=== PATIENT | male | born 1935 | race African-American/Black ===

== ENCOUNTER 2018-01-30 10:37 | Inpatient (IN) | payer OTHER ==
[~2018-01-30] VITALS: Ht 188 cm; Wt 143.3 kg
--- NOTE | 2018-01-30 11:07 | ED AMS/SEIZURE/WEAK/DIZZY ---
History of Present Illness General Chief Complaint: General Adult Stated Complaint: BIBA GEN WEAKNESS Source: patient Exam Limitations: no limitations Vital Signs & Intake/Output Vital Signs & Intake/Output Vital Signs Date Time Temp Pulse Resp B/P B/P Pulse O2 O2 Flow FiO2 Mean Ox Delivery Rate 01/30 1520 98.3 65 18 161/72 93 Room Air 01/30 1301 98.0 66 18 188/76 100 Nasal Cannula 01/30 1104 92 18 142/65 96 Room Air Room Air 01/30 1037 98.2 78 20 197/86 98 Room Air Allergies Coded Allergies: NO KNOWN ALLERGIES (06/08/11) Reconcile Medications Amlodipine/Valsartan/Hcthiazid (Exforge Hct 10-320-25 MG Tab) 10 MG-320 MG-25 MG TABLET 1 TAB PO DAILY BP (Reported) Aspirin (Ecotrin*) 81 MG TABLET.DR 1 TAB PO DAILY HEART/BLOOD (Reported) Beclomethasone Dipropionate (QVAR) 80 MCG AER.W.ADAP 2 PUF INH BID RESP. ( Reported) Gabapentin 400 MG CAPSULE 1 CAP PO BID SEIZURES/TREMORS (Reported) Multivit-Min/FA/Lycopen/Lutein (Centrum Silver Men Tablet) 300 MCG-600 MCG-300 MCG TABLET 1 TAB PO DAILY SUPPLEMENT (Reported) Nabumetone 750 MG TABLET 1 TAB PO BID PAIN/INFLAMMATION (Reported) Nebivolol HCl (Bystolic) 10 MG TABLET 1 TAB PO DAILY HEART/BP (Reported) Pioglitazone HCl/Metformin HCl (Actoplus Met XR 15-1,000 MG Tb) 15 MG-1,000 MG TBMP.24HR 1 TAB PO BID DM (Reported) Primidone 50 MG TABLET 2 TAB PO BID SEIZURES/TREMORS (Reported) Rosuvastatin Calcium (Crestor) 10 MG TABLET 1 TAB PO DAILY CHOLESTEROL ( Reported) Triage Note: PT BIBA STATING THAT HE COULD NOT GET OFF TOILET.. PT EVENTUALLY MADE IT BACK TO BED AND CALLED 911. C/O SHAKES AND WEEKNESS. PT STATES HE HAS HAD A HEADACHE SINCE YESTERDAY TO THE RIGHT SIDE OF HIS HEAD.. PT HAS RIGHT FACIAL DROOP, LEFT SIDE WEAK GRASP. DR GROSS AWARE Triage Nurses Notes Reviewed? yes HPI: Patient presents for evaluation of shaking "all over" that began yesterday. Today he felt too weak to use the toilet. He called for his who then called for an ambulance. Past History Travel History Traveled to [place] past 21 day No Medical History Any Pertinent Medical History? see below for history Pneumonia Vaccine: 11/19/09 Influenza Vaccine: 07/29/12 Surgical History Surgical History: non-contributory Psychosocial History Who do you live with Spouse Services at Home None What is your primary language Chilean Family History Hx Contributory? No Review of Systems Review of Systems Constitutional: Reports: see HPI. EENTM: Reports: no symptoms. Respiratory: Reports: no symptoms. Cardiovascular: Reports: no symptoms. GI: Reports: no symptoms. Genitourinary: Reports: no symptoms. Musculoskeletal: Reports: no symptoms. Skin: Reports: no symptoms. Neurological/Psychological: Reports: see HPI. Hematologic/Endocrine: Reports: no symptoms. Immunologic/Allergic: Reports: no symptoms. All Other Systems: Reviewed and Negative Physical Exam Physical Exam General Appearance: SEE BELOW Comments: Gen.: Well-nourished, well-developed, no acute respiratory distress. Head: Normocephalic, atraumatic. Eyes: Normal inspection bilaterally Ears: Normal inspection bilaterally Nose: Normal inspection Throat/mouth : Moist mucosa Neck: Supple, full range of motion, no goiter Heart: Regular rate and rhythm, no murmurs rubs or gallops Lungs: Clear to auscultation bilaterally with normal air entry Chest: Nontender Back: Normal range of motion Abdomen: Soft, nontender, nondistended, normal bowel sounds Extremities: Normal range of motion grossly, equal radial pulses, no cyanosis, diffuse tremors that increase with intention Neurologic: Cranial nerves grossly intact, speech is mildly dysarthric but appropriate Skin: warm and dry Psychiatric: Calm, cooperative, no apparent delusions or hallucinations Core Measures ACS in differential dx? No CVA/TIA Diagnosis No Sepsis Present: No Sepsis Focused Exam Completed? No Progress Differential Diagnosis: anemia, CVA/stroke, dehydration, electrolyte imbalance, hypoglycemia, hypoxia, intracranial Hem., intracranial mass/tumor, seizure disorder, PARKINSON DISEASE Plan of Care: Orders Procedure Date/time Status Saline Lock 01/30 1107 Active FingerStick- Glucose 01/30 1107 Active URINALYSIS 01/30 1107 Complete TSH REFLEX 01/30 1106 Complete PARTIAL THROMBOPLASTIN TIME 01/30 1047 Complete PROTHROMBIN TIME 01/30 1047 Complete COMPREHENSIVE METABOLIC PANEL 01/30 1047 Complete CBC WITHOUT DIFFERENTIAL 01/30 1047 Complete EKG 01/30 104 Active Laboratory Tests 01/30/18 1400: Urine Color YEL, Urine Clarity CLEAR, Urine pH 6.0, Ur Specific Dewey >= 1.030 , Urine Protein 30 H, Urine Ketones NEG, Urine Nitrite NEG, Urine Bilirubin NEG , Urine Urobilinogen 0.2, Ur Leukocyte Esterase NEG, Ur Microscopic SEDIMENT EXAMINED, Urine RBC 25-50 H, Urine WBC 1-3 H, Urine Mucus MOD H, Urine Hemoglobin MOD H, Urine Glucose NEG 01/30/18 1107: TSH &T3 &Free T4 Intrp Cancelled 01/30/18 1106: Anion Gap 13, Estimated GFR > 60, BUN/Creatinine Ratio 22.7, Glucose 105 H, Calcium 9.1, Total Bilirubin 0.4, AST 29, ALT 31, Alkaline Phosphatase 75, Total Protein 7.1, Albumin 3.8, Globulin 3.3, Albumin/Globulin Ratio 1.2, TSH &T3 & Free T4 Intrp 1.250, PT 12.1, INR 1.11, APTT 29, CBC w Diff NO MAN DIFF REQ, RBC 3.99 L, MCV 83.6, MCH 27.0, MCHC 32.3 L, RDW 16.2 H, MPV 10.6 H, Gran % 83.2 H, Lymphocytes % 9.9 L, Monocytes % 6.5, Eosinophils % 0.2, Basophils % 0.2, Absolute Granulocytes 10.7 H, Absolute Lymphocytes 1.3, Absolute Monocytes 0.8 H, Absolute Eosinophils 0, Absolute Basophils 0 Diagnostic Imaging: Discussed w/RAD: Radiology Read, CT Scan. Radiology Impression: PATIENT: LIO GAGE PRESENT AGE: 82 PATIENT ACCOUNT NO: [id number] : 37 LOCATION: [facility] ORDERING PHYSICIAN: Ralph Gross MD SERVICE DATE: 01/30/18 EXAM TYPE: RAD - XRY-PORTABLE CHEST XRAY EXAMINATION: XR PORTABLE CHEST CLINICAL INFORMATION: Shaking, weakness COMPARISON: Chest radiographs 12/28/2012, CT abdomen 2012. TECHNIQUE: Portable AP view of the chest is performed. FINDINGS: The lungs are clear. The vascularity is normal. There is no vascular congestion, visible airspace consolidation, or visible effusion. There is mild elevation left diaphragm. The cardiopericardial silhouette is stable. The hilar and mediastinal contours and bony structures are unremarkable. IMPRESSION: No acute intrathoracic disease. DICTATED BY: Abebe Butts MD DATE/TIME DICTATED:01/30 LEAD SYSTEMS ARCHITECT:ARIS DATE/TIME TRANSCRIBED:01/30/181133 CONFIDENTIAL, DO NOT COPY WITHOUT APPROPRIATE AUTHORIZATION. <Electronically signed in Other Vendor System> SIGNED BY: Abebe Butts MD 01/30/18 1141 , PATIENT: LIO GAGE PRESENT AGE: 82 PATIENT ACCOUNT NO: [id number] : 37 LOCATION: [facility] ORDERING PHYSICIAN: Ralph Gross MD SERVICE DATE: 01/30/18 EXAM TYPE: CAT - CT HEAD WO IV CONTRAST EXAMINATION: CT HEAD WITHOUT CONTRAST CLINICAL INFORMATION: Right facial droop. Left extremity weakness. COMPARISON: None TECHNIQUE: Contiguous axial imaging was performed from the skull base to vertex without intravenous administration of contrast. DLP: 610 mGy-cm FINDINGS: There is no intracranial hemorrhage, hematoma, or extra-axial fluid collection. The ventricles are normal in size. There is no hydrocephalus, edema, or mass effect. The muse-white matter differentiation appears symmetric. There is no visible acute territorial infarct or mass lesion. The calvarium appears intact. There is no pneumocephalus or orbital emphysema. The visualized sinuses and middle ears and mastoid air cells are clear. There is under pneumatization of the mastoids. IMPRESSION: No acute intracranial abnormality. DICTATED BY: Abebe Butts MD DATE/TIME DICTATED:01/30/181103 LE[employer] SYSTEMS ARCHITECT:ARIS DATE/TIME TRANSCRIBED:1103 CONFIDENTIAL, DO NOT COPY WITHOUT APPROPRIATE AUTHORIZATION. < Electronically signed in Other Vendor System> SIGNED BY: Abebe Butts MD 01/30/18 1114 Initial ED EKG: NSR, no ST T wave changes Prior EKG: unchanged Comments: Stroke alert called initially based on a history of a right facial droop that apparently began after the patient was picked up by EMS. Initially there seemed to be according to EMS no stroke symptoms. However during my examination of this patient there is likewise no apparent focal neurologic deficit. This impression was conveyed to the neurologist and the stroke alert canceled. 01/30/2018 3:00:27 PM I have updated Lio and his family on test results. They confirmed that his shaking that was of such concern today has been chronic and he takes gabapentin for this. They state that he has never seen a neurologist for the shaking having been cared for by his primary care physician only. His oxygen has been discontinued and I am serving for any hypoxia. Patient will be ambulated to assess for baseline functioning. Departure Departure Disposition: HOME OR SELF CARE Condition: Stable Clinical Impression Primary Impression: Tremors of nervous system Secondary Impressions: Anemia Qualifiers: Anemia type: unspecified type Qualified Code: D64.9 - Anemia, unspecified Hematuria, microscopic Leukocytosis Qualifiers: Leukocytosis type: unspecified Qualified Code: D72.829 - Elevated white blood cell count, unspecified Referrals: Tamera Sainz MD, I. (PCP/Family) Departure Forms: Customer Survey General Discharge Information Admission Note Spoke With: Chasity Newman MD Documentation of Exam: Documentation of any treatments & extenuating circumstances including Concerns Regarding Discharge (functional status, medication knowledge or non-compliance, living conditions, etc.) that warrant an admission rather than observation: Patient presents with worsening tremors overnight. He is also experiencing a generalized weakness that is severely compromised his ability to ambulate and he is well below baseline ambulatory and functional status. His evaluation reveals anemia, leukocytosis and hematuria. I feel this patient is a poor candidate for outpatient management as I feel he would be incapable of compliance given his weakness and diffuse tremors. I feel he is also at increased risk of falling with subsequent injury. I feel this patient now requires hospitalization for repeat CBCs and urinalysis. If patient's leukocytosis persists then causes of increased white blood cell count should be pursued such as inflammation infection or hematologic disease. If the patient's anemia persists then causes of his anemia should be investigated such as occult blood loss or iron deficiency. In addition patient's hematuria should be investigated if persistent and neurology consultation be considered. Finally patient's diffuse tremors should be investigated and neurology consultation considered for the possibility of Parkinson disease or other neuromuscular disorder. Given this patient's advanced age I feel he will require a multiple day hospitalization.
--- NOTE | 2018-01-30 11:14 | CT SCAN REPORT ---
EXAMINATION: CT HEAD WITHOUT CONTRAST CLINICAL INFORMATION: Right facial droop. Left extremity weakness. COMPARISON: None TECHNIQUE: Contiguous axial imaging was performed from the skull base to vertex without intravenous administration of contrast. DLP: 610 mGy-cm FINDINGS: There is no intracranial hemorrhage, hematoma, or extra-axial fluid collection. The ventricles are normal in size. There is no hydrocephalus, edema, or mass effect. The muse-white matter differentiation appears symmetric. There is no visible acute territorial infarct or mass lesion. The calvarium appears intact. There is no pneumocephalus or orbital emphysema. The visualized sinuses and middle ears and mastoid air cells are clear. There is under pneumatization of the mastoids. IMPRESSION: No acute intracranial abnormality.
[2018-01-30 11:37] LABS: PT 12.1 SEC (9.4-12.5); PTT 29 SEC (25-37)
--- NOTE | 2018-01-30 11:41 | RADIOLOGY REPORT ---
EXAMINATION: XR PORTABLE CHEST CLINICAL INFORMATION: Shaking, weakness COMPARISON: Chest radiographs 12/28/2012, CT abdomen 04/14/2013. TECHNIQUE: Portable AP view of the chest is performed. FINDINGS: The lungs are clear. The vascularity is normal. There is no vascular congestion, visible airspace consolidation, or visible effusion. There is mild elevation left diaphragm. The cardiopericardial silhouette is stable. The hilar and mediastinal contours and bony structures are unremarkable. IMPRESSION: No acute intrathoracic disease.
[2018-01-30] MEDS ORDERED: ASPIRIN EC81 M1 PO (11:59)
[2018-01-30] MEDS ORDERED: CENTRUM SILVER1 EAC4 PO (12:00)
[2018-01-30 12:17] LABS: ABSOLUTE BASOPHIL COUNT 0 /CUMM (0.0-0.2); ABSOLUTE EOSINOPHIL COUNT 0 /CUMM (0.0-0.7); ABSOLUTE GRANULOCYTE CT 10.7 /CUMM (1.4-6.5); ABSOLUTE LYMPH COUNT 1.3 /CUMM (1.2-3.4); ABSOLUTE MONOCYTE COUNT 0.8 /CUMM (0.10-0.60); BASOPHIL % 0.2 % (0.0-2.0); EOSINOPHIL % 0.2 % (0-5); HEMATOCRIT 33.4 % (42-52); MEAN CORPUSCULAR HGB CONC 32.3 G/DL (33.0-37.0); MEAN CORPUSCULAR VOLUME 83.6 FL (80.0-94.0); MEAN PLATELET VOLUME 10.6 FL (7.4-10.4); PLATELET COUNT 184 /CUMM (130-400); RBC DISTRIBUTION WIDTH 16.2 % (11.5-14.5); RED BLOOD CELL CT 3.99 /CUMM (4.70-6.10); WHITE BLOOD CELL COUNT 12.9 /CUMM (4.8-10.8)
[2018-01-30 12:28] LABS: GRANULOCYTE % 83.2 % (42.2-75.2)
[2018-01-30] MEDS ORDERED: EXFORGE HCT 101 EAC2 PO (13:12)
[2018-01-30] MEDS ORDERED: NABUMETONE750 M1 PO (13:12)
[2018-01-30] MEDS ORDERED: ACTOPLUS MET X1 EACH PO (13:13)
[2018-01-30] MEDS ORDERED: PRIMIDONE50 M1 PO (13:13)
[2018-01-30] MEDS ORDERED: QVAR8.7 G1 INH (13:13)
[2018-01-30] MEDS ORDERED: CRESTOR10 M1 PO (13:13)
[2018-01-30] MEDS ORDERED: BYSTOLIC10 M1 PO (13:13)
[2018-01-30] MEDS ORDERED: GABAPENTIN400 M2 PO (13:14)
--- NOTE | 2018-01-30 17:29 | History & Physical ---
Bear PORTILLO,[facility] 01/30/18 5698: General Information and HPI MD Statement: I have seen and personally examined GARY GAGE and documented this H&P. The patient is a 82 year old M who presented with a patient stated chief complaint of [weakness]. Source of Information: patient Exam Limitations: no limitations History of Present Illness: The patient is a 82-year-old gentleman with past medical history of hypertension , tremors, diabetes, hyperlipidemia and prostate cancer status post chemotherapy 10 years ago, with recent relapse along with spine metastasis for which patient is following up with his oncologist in [place] getting chemotherapy every 6 months?. The patient presented to [facility] on 01/30 with complain of generalized weakness. The patient was in usual state of health until this yesterday. The patient used bedside commode and felt so weak that he could not get up. The patient did not fall, lose consciousness, there was no prodromal dizziness chest pain, shortness of breath and palpitation. There was no seizure-like activity. Patient was experiencing extreme weakness. He called in his who called the ambulance. The patient is also complaining of increase in hand tremors. Patient has baseline tremors for which he takes primidone and Gabapentin. As per patient and his family his tremors have never been this bad. As per patient's the patient usually has tremors when he is trying to reach out for something. At present his tremor is worse on R side Review of systems patient reported feeling cold however denied any fevers. As per ED documentation Stroke alert was initially called because there was concern of right facial droop however on EMS examination, in ED physician examination there was no focal deficit. Hence the stroke alert was cancelled Patient passed bedside swallow evaluation. Allergies/Medications Allergies: Coded Allergies: NO KNOWN ALLERGIES (06/08/11) Home Med list Amlodipine/Valsartan/Hcthiazid (Exforge Hct 10-320-25 MG Tab) 10 MG-320 MG-25 MG TABLET 1 TAB PO DAILY BP (Reported) Amoxicillin/Clavulanate Potass (Amox-Clav 875-125 MG Tablet) 875 MG-125 MG TABLET 1 TAB PO Q12 INFECTION Aspirin (Ecotrin*) 81 MG TABLET.DR 1 TAB PO DAILY HEART/BLOOD (Reported) Beclomethasone Dipropionate (QVAR) 80 MCG AER.W.ADAP 2 PUF INH BID RESP. ( Reported) Gabapentin 400 MG CAPSULE 1 CAP PO BID SEIZURES/TREMORS (Reported) Multivit-Min/FA/Lycopen/Lutein (Centrum Silver Men Tablet) 300 MCG-600 MCG-300 MCG TABLET 1 TAB PO DAILY SUPPLEMENT (Reported) Nabumetone 750 MG TABLET 1 TAB PO BID PAIN/INFLAMMATION (Reported) Nebivolol HCl (Bystolic) 10 MG TABLET 1 TAB PO DAILY HEART/BP (Reported) Pioglitazone HCl/Metformin HCl (Actoplus Met XR 15-1,000 MG Tb) 15 MG-1,000 MG TBMP.24HR 1 TAB PO BID DM (Reported) Primidone 50 MG TABLET 2 TAB PO BID SEIZURES/TREMORS (Reported) Rosuvastatin Calcium (Crestor) 10 MG TABLET 1 TAB PO DAILY CHOLESTEROL ( Reported) Past History Travel History Traveled to [place] past 21 day No Medical History Cancer(s): prostate cancer Pneumonia Vaccine: 11/19/09 Influenza Vaccine: 07/29/12 Surgical History Surgical History: non-contributory Past Family/Social History Family History Relations & Conditions if any Relation not specified for: *No pertinent family history Psychosocial History Where do you live? Home Who Do You Live With? self Services at Home: None Review of Systems Review of Systems Constitutional: Reports: see HPI, chills, malaise, weakness. EENTM: Reports: no symptoms. Respiratory: Reports: no symptoms, see HPI, cough, hemoptysis, orthopnea, short of breath, sputum production, stridor, wheezing. GI: Reports: no symptoms. Genitourinary: Reports: no symptoms. Exam & Diagnostic Data Last 24 Hrs of Vital Signs/I&O Vital Signs Date Time Temp Pulse Resp B/P B/P Pulse O2 O2 Flow FiO2 Mean Ox Delivery Rate 01/31 2024 CPAP 01/30 192 99.6 93 18 185/99 96 Room Air 01/30 1824 98.5 68 20 172/78 94 Room Air 01/30 1723 95 Room Air 01/30 1520 98.3 65 18 161/72 93 Room Air 01/30 1301 98.0 66 18 188/76 100 Nasal Cannula 01/30 1104 92 18 142/65 96 Room Air Room Air 01/30 1037 98.2 78 20 197/86 98 Room Air Intake & Output 01/30 1600 01/30 0800 04/15 0000 Intake Total Output Total Balance Patient 316 lb Weight Weight Reported by Patient Measurement Method Physical Exam General Appearance Alert, Oriented X3, Cooperative HEENT Atraumatic Cardiovascular Normal S1, Normal S2 Lungs Clear to Auscultation Abdomen Normal Bowel Sounds, Soft, No Tenderness Neurological Normal Speech, Normal Tone, Sensation Intact, Cranial Nerves 3-12 NL, lower extremity strength 3/5 due to pain Upper extremity 5/5 Last 24 Hrs of Labs/Jon: Laboratory Tests 01/30/18 1400: Urine Color YEL, Urine Clarity CLEAR, Urine pH 6.0, Ur Specific [place] >= 1.030 , Urine Protein 30 H, Urine Ketones NEG, Urine Nitrite NEG, Urine Bilirubin NEG , Urine Urobilinogen 0.2, Ur Leukocyte Esterase NEG, Ur Microscopic SEDIMENT EXAMINED, Urine RBC 25-50 H, Urine WBC 1-3 H, Urine Mucus MOD H, Urine Hemoglobin MOD H, Urine Glucose NEG 01/30/18 1107: TSH &T3 &Free T4 Intrp Cancelled 01/30/18 1106: Anion Gap 13, Estimated GFR > 60, BUN/Creatinine Ratio 22.7, Glucose 105 H, Calcium 9.1, Total Bilirubin 0.4, AST 29, ALT 31, Alkaline Phosphatase 75, Total Protein 7.1, Albumin 3.8, Globulin 3.3, Albumin/Globulin Ratio 1.2, TSH &T3 & Free T4 Intrp 1.250, PT 12.1, INR 1.11, APTT 29, CBC w Diff NO MAN DIFF REQ, RBC 3.99 L, MCV 83.6, MCH 27.0, MCHC 32.3 L, RDW 16.2 H, MPV 10.6 H, Gran % 83.2 H, Lymphocytes % 9.9 L, Monocytes % 6.5, Eosinophils % 0.2, Basophils % 0.2, Absolute Granulocytes 10.7 H, Absolute Lymphocytes 1.3, Absolute Monocytes 0.8 H, Absolute Eosinophils 0, Absolute Basophils 0 Diagnostic Data CXR Results IMPRESSION: No acute intrathoracic disease Other Results CAT - CT HEAD WO IV CONTRAST IMPRESSION: No acute intracranial abnormality. Assessment/Plan Assessment: The patient is a 82-year-old gentleman with past medical history of hypertension , tremors, diabetes, hyperlipidemia and prostate cancer status post chemotherapy 10 years ago, with recent relapse along with spine metastasis for which patient is following up with his oncologist in [place] getting chemotherapy every 6 months?. The patient presented to [facility] on 01/30 with complain of generalized weakness. Vitals on admission blood pressure running towards the higher side range 180s to 160s/70s to 90s Admission labs significant for leukocytosis 12.9 H/H , bicarbonate 32 BUN 25 Imaging Findings Dictated above The patient is being treated and evaluated for following conditions #Generalized weakness and deconditioning Patient was initially decided to be discharged home. However later it was deemed to be an unsafe discharge plan -Admit to [facility] -Monitoring vitals -PT evaluation in the morning #Hand Tremors is likely essential Bilateral action tremor without any focal deficit -NeuroConsult in the morning -Continue gabapentin and primidone -I have tried to place neurology consult at [phone] multiple times, i am getting a busy tone, will try again in am #Leukocytosis No source of infection, afebrile.CXR clear, UA 1-3 WBCs negative less likely UTI -Continue to monitor -Monitor off antibiotics -Blood cultures 2 -Urine culture #Anemia presented with H/H of stable -Continue iron supplementation -Iron studies, B12 and folate #History of prostate cancer -Obtain results from patient's oncologist #History of diabetes -Oral antiglycemic agents on hold -Insulin sliding scale #History of hypertension, hyperlipidemia continue losartan hydrochlorothiazide, amlodipine, diastolic, statin. #Consistent carbohydrate 1 diet/prophylaxis with Lovenox/FC As Ranked By This Provider Problem List: 1. Leukocytosis Qualifiers Leukocytosis type: unspecified Qualified Code: D72.829 - Elevated white blood cell count, unspecified 2. Tremors of nervous system Core Measures/Misc (07/04) Acute Coronary Syndrome ACS Diagnosis: No Congestive Heart Failure Congestive Heart Failure Diagnosis No Cerebrovascular Accident CVA/TIA Diagnosis: No VTE (View Protocol) VTE Risk Factors Estrogen Therapy No Mechanical VTE Prophylaxis d/t N/A MechProphylax Ordered No VTE Pharm Prophylaxis d/t NA PharmProphylax ordered Sepsis (View protocol) Sepsis Present: No Resident Review Statement Resident Statement: examined this patient, discussed with pharmacy intern Martir PORTILLO,[place] 01/30/18 1930: Resident Review Statement Resident Statement: examined this patient, discussed with pharmacy intern, agreed with pharmacy intern Other Findings: 82-year-old very pleasant man with a past medical history of hyperlipidemia, prostate cancer status post chemotherapy with recent relapse compared get a bite spinal metastases and currently on chemotherapy, peripheral neuropathy, and tremors managed by primidone presents to [place] ED for evaluation of worsening tremors and generalized weakness. High exam was negative for any neurological focality suggests dysarthria, facial droop or significant extremity weakness. Impression * Acute on chronic worsening of hand tremors. * Generalized malaise * Leukocytosis. Unlikely to be of infectious etiology. * History of chronic diseases; anemia, prostatic cancer, type 2 diabetes, peripheral neuropathy Plan Admit to general medicine floor Neurochecks every 4 hours Patient passed bedside swallow evaluation, will put patient on regular diet Will obtain neurology consult tomorrow morning Carbohydrate diet Accu-Chek 3 times a day and bedtime NovoLog sliding scale Continue home BP medications Will obtain medical records from [facility] [place] [facility]ILLO[facility] 01[facility]182030: Attending MD Review Statement Attending Statement Attending MD Statement: examined this patient, discuss w/resident/PA/RAMP AGENT, agreed w/resident/PA/RAMP AGENT, discussed with family, reviewed images, amended to note Attending Assessment/Plan: 82 yo M with h/o CAD s/p NM, previous systolic heart failure, asthma, HTN, T2DM with peripheral neuropathy, MAX not using CPAP, chronic right hand essential tremors, prostate cancer (diagnosed 10 yrs ago) 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 Gallardo (Oncologist) and Dr. Silveira (Urologist), usually follows at [facility], is brought in for evaluation of lower extremity weakness and worsening tremors. Patient's is at bedside who provides most of the history. Today at 5 am, patient was on the commode and was not able to get off the commode. He tried calling out to his (Mary Jane) but no response. So he held on to the bathroom chair and was able to get off the commode but with difficulty. He reports feeling weak in his legs and could not lift himself off the commode. He then got back to the room, and noted that his right hand tremors were worse. She denies any whole body shaking or tremors. He has chronic essential tremor of right hand, mostly visible when he is trying to write, however today it was more prominent even at rest. Patient also felt weak in his right hand. He feels his speech was off and he did not feel right. C/o right sided headache but no vision changes. denies any slurring of speech or facial droop. No seizure like activity. No previous h/o TIA or stroke. Review of systems is otherwise negative for chest pain, palpitations, dyspnea, fever, cough, urinary symptoms or GI symptoms. At baseline, he ambulates indepedently but uses a cane when outside. He denies frequent falls. No urinary or fecal incontinence. He is on gabapentin for neuropathy which was recently increased by his Orthopedic doctor. He is using Primidone for his tremors prescribed by his PCP. He has never seen a Neurologist. notes that patient's posture has changed, he cherrie forward more than usual which she attributes to his back pain from the mets. But no shuffling gait or frequent falls. Patient's called 911 after his daughter requested her to do so as he was not his normal self. Upon ER arrival, stroke alert was called for ?EMS report of facial droop however there was no focal neuro deficit on exam, hence stroke alert was cancelled. Vitals: Tmax 99.6, HR 66-90's, BP 161/72 -->185/99, sats 94% RA. Exam: awake, alert, oriented x 2 (was able to tell January 30, but said 2015), speech is clear, no facial droop, cranial nerves intact, power 5/5 bilateral upper extremities, no pronator drift, power 4/5 in bilateral lower extremites, sensation reduced in bilateral lower extremities singleton downwards to feet, proprioception attempted but patient unable to follow, reflex 1+, Plantar's downgoing. Tone good, no rigidity. Tremors noted to right hand more prominent than left hand. Tremor worse when trying to do finger-nose testing but is visible at rest also. Patient reports pain in the lower extremities (L>R) around the singleton area, no obvious abnormality. He also reports back pain -on examination point tenderness noted in right buttock but no spinal or paraspinal tenderness. Chest b/l clear, Heart S1S2 regular, systolic murmur+. Abd soft, NT. LE: chronic stasis changes, chronic 1+ edema, peripheral pulse well felt. Labs: WBC 12.9, H/H 10.8/33.4, Plt 184, bicarb 32, BUN 25, creat 1.1, glucose 105. UA proteinuria, RBC 25-50. Head CT: no acute abnormality. CXR: no acute disease. EKG (being read as Afib), EKG was repeated sinus rhythm with first degree AV block and LAFB, old anteroseptal NM. No acute changes. Assessment and plan: 1. Bilateral lower extremity weakness, generalized weakness 2. Worsening of chronic essential tremors, less likely Parkinson's 3. History of prostate cancer metastatic to the bone 4. Type 2 diabetes with peripheral neuropathy 5. Uncontrolled essential hypertension 6. Chronic normocytic anemia 7. Leukocytosis no clear source of infection - Admit to General medicine - Neurochecks Q4 - Passed bedside swallow eval - Fall precautions - Obtain Neuro consult - ?Consider MRI brain/ spine if symptoms do not improve - Obtain records from patient's Oncologist/ Urologist - Check CK, TSH, B12. - PT eval - Continue gabapentin and primidone - Follow blood cultures, monitor off antibiotics. - Accucheks, check HbA1c, hold OHA, initiate novolog SS - Resume anti-hypertensives amlodipine, valsartan, HCTZ and nebivolol. - Continue CPAP at night (patient agreeable to use) DVT ppx Lovenox. Full code. Around 2 AM, patient spikes a temperature of 102.7, blood cultures were drawn (not drawn in ER) and will continue to watch him off antibiotics as I do not have a source on him. Check lactic acid, CRP. Gentle IV fluids. I re-evaluated patient at 5 am when his temp (rectal) was 101.7 despite tylenol and spoke with (Mary Jane) at bedside. She reports patient was treated for bronchitis (January 14) with Augmentin and prednisone, after which his cough/ congestion symptoms got better. Currently patient has no URI symptoms, no UTI symptoms, no GI symptoms, no obvious skin-soft tissue infections, mentation is ok, no nuchal rigidity. CXR on initial eval was negative for pneumonia and UA was not impressive for UTI. Given persistent fever, will obtain CT chest/abd/ pelvis looking for a possible source. Watch off antibiotics for now. Flu swab pending. Obtain ID consult in AM. Noted CK is slightly elevated, will hydrate and trend it. Hold statin for now.
[2018-01-30 19:23] VITALS: BP 185/99
--- NOTE | 2018-01-30 20:32 | Admission Certification ---
Admission Certification Certification Statement - As attending physician, I certify that at the time of - admission, based on clinical presentation, severity of - symptoms, need for further diagnostic testing and - therapeutic interventions, and risk of adverse outcomes - without in-hospital treatment, in my clinical assessment, - this patient requires an acute hospital stay for a minimum - of two nights or longer. I have also considered psychsocial - factors such as support system, advanced age, financial - issues, cognitive issues, and failed out-patient treatments, - past re-admission history, safety of patient, and lack of - compliance as applicable. Specific rationale supporting this admission is: Elderly male with metastatic prostate cancer presenting with weakness and increasing tremors.
[2018-01-31 00:04] VITALS: BP 176/83
[2018-01-31 02:00] VITALS: BP 146/74
[2018-01-31 05:34] LABS: ABSOLUTE BASOPHIL COUNT 0 /CUMM (0.0-0.2); ABSOLUTE EOSINOPHIL COUNT 0.1 /CUMM (0.0-0.7); ABSOLUTE GRANULOCYTE CT 6.8 /CUMM (1.4-6.5); ABSOLUTE LYMPH COUNT 2.4 /CUMM (1.2-3.4); ABSOLUTE MONOCYTE COUNT 1.1 /CUMM (0.10-0.60); BASOPHIL % 0.4 % (0.0-2.0); EOSINOPHIL % 1.2 % (0-5); GRANULOCYTE % 65.3 % (42.2-75.2); HEMATOCRIT 31.1 % (42-52); MEAN CORPUSCULAR HGB 27.3 PG (27.0-31.0); MEAN CORPUSCULAR HGB CONC 33.1 G/DL (33.0-37.0); MEAN CORPUSCULAR VOLUME 82.6 FL (80.0-94.0); MEAN PLATELET VOLUME 9.7 FL (7.4-10.4); PLATELET COUNT 140 /CUMM (130-400); RED BLOOD CELL CT 3.77 /CUMM (4.70-6.10); WHITE BLOOD CELL COUNT 10.4 /CUMM (4.8-10.8)
--- NOTE | 2018-01-31 06:27 | CT SCAN REPORT ---
EXAMINATION: CT CHEST WITHOUT CONTRAST CT ABDOMEN AND PELVIS WITHOUT CONTRAST CLINICAL INFORMATION: Fever of unknown origin. COMPARISON: Abdominal CT 04/14/2013. TECHNIQUE: Multidetector volumetric imaging was performed through the chest, abdomen and pelvis without contrast. Sagittal and coronal reformatted images were obtained on the technologist's workstation. Axial MIP volume rendering provided. DLP: 2017 mGy-cm. FINDINGS: CHEST: Lungs: The central airways are patent. Minimal basilar atelectasis. No consolidation. Minimal tree-in-bud opacity noted at the periphery of the right upper lobe. Right apical calcified granuloma noted. No pleural effusion or pneumothorax. Mediastinum: The heart is normal in size. Coronary artery calcifications are present. No mediastinal lymphadenopathy. No pericardial effusion. Chest Wall/Axilla: No lymphadenopathy. No chest wall mass. ABDOMEN/PELVIS: Liver, Gallbladder, Biliary Tree: The liver is normal in size, shape, and attenuation. No focal hepatic lesion or biliary ductal dilatation is present. Cholecystectomy. Pancreas: Unremarkable. Spleen: Unremarkable. Adrenal Glands: Unremarkable. Kidneys and Ureters: The kidneys are normal in size, shape, and attenuation. No hydronephrosis or hydroureter. Right midpole 0.4 cm m calculus, 14 cm from the posterior axillary line. No left-sided calculi. Multiple bilateral renal cysts are noted. Bladder: Unremarkable. Gastrointestinal Tract: The stomach is unremarkable. The small bowel is normal in caliber. No obstruction. Normal appendix. No colonic wall thickening or inflammatory change. No free air or free fluid. Abdominal Wall: No hernia is demonstrated. Lymphovascular Structures: Lymph nodes: Normal. Vascular: Normal caliber aorta with mild atherosclerotic calcifications. Pelvic Viscera: Seeds within the prostate. The seminal vesicles are unremarkable. OSSEOUS STRUCTURES: No suspicious sclerotic or lytic bone lesions are identified. Degenerative changes are seen throughout the spine. DISH. IMPRESSION: Minimal tree-in-bud opacities at the periphery of the right upper lobe may be infectious or inflammatory in etiology. No empyema. No acute findings in the abdomen or pelvis. Right nonobstructing renal calculus. Bilateral renal cysts.
[2018-01-31 06:55] VITALS: BP 156/67
--- NOTE | 2018-01-31 07:33 | PN- Housestaff ---
Dave PORTILLO,Ezequiel 01/31/18 0733: Subjective Follow-up For: Generalized weakness Suspected Pneumonia Tremors Subjective: Patient was seen and examined today. Patient reports fatigue, tremors, confusion , weakness, fever/chills. Patient denies chest pain, shortness of breath, dysuria/hematuria. Review of Systems Constitutional: Reports: see HPI. Objective Last 24 Hrs of Vital Signs/I&O Vital Signs Date Time Temp Pulse Resp B/P B/P Pulse O2 O2 Flow FiO2 Mean Ox Delivery Rate 01/31 1658 Room Air Room Air 01/31 1647 Room Air Room Air 01/31 1354 100.5 65 20 148/72 98 Room Air 01/31 0926 101.7 68 20 156/67 01/31 0925 101.7 68 20 156/67 01/31 0925 101.7 68 156/67 01/31 0655 68 20 156/67 93 01/31 0540 76 95 01/31 0520 101.7 01/31 0500 101.0 01/31 0414 101.4 01/31 0322 101.8 01/31 0311 101.8 01/31 0212 102.7 01/31 0200 146/74 01/31 0155 102.7 01/31 0035 70 94 01/31 0004 71 176/83 92 01/31 0000 CPAP 01/30 2158 76 94 01/30 2125 Room Air Room Air 01/30 2109 93 185/99 01/30 2108 93 185/99 01/30 2024 CPAP 01/30 1923 99.6 93 18 185/99 96 Room Air Intake & Output 01/31 1600 01/31 0800 01/31 0000 Intake Total 615 480 Output Total 250 350 Balance -250 265 480 Intake, IV 375 Intake, Oral 240 480 Output, Urine 250 350 Patient 316 lb Weight Weight Reported by Patient Measurement Method Physical Exam General Appearance: Alert, Cooperative, No Acute Distress HEENT: Atraumatic, PERRLA, EOMI, Mucous Membr. moist/pink Cardiovascular: Regular Rate, Normal S1, Normal S2 Lungs: Clear to Auscultation, Normal Air Movement Abdomen: Normal Bowel Sounds, Soft, No Tenderness Neurological: Normal Speech, Sensation Intact, Cranial Nerves 3-12 NL, Reflexes 2+, decreased strength in upper and lower extremities, right arm rigidity, + tremor Extremities: No Clubbing, No Cyanosis, No Edema, Normal Pulses, No Tenderness/ Swelling Vascular: Normal Pulses, Pulses Symmetrical Current Medications: Current Medications Sig/Nahomi Start time Last Medication Dose Route Stop Time Status Admin Acetaminophen 650 MG ONCE ONE 01/31 0200 DC 01/31 PO 01/31 0201 0212 Amlodipine Besylate 10 MG DAILY 01/30 1921 AC 01/31 PO 0925 Aspirin Buffered 81 MG DAILY 01/31 0900 AC 01/31 PO 0926 Atorvastatin Calcium 40 MG 1700 01/31 1700 CAN PO Azithromycin 500 MG DAILY 01/31 0700 AC 01/31 Dextrose/Water 250 ML IV 0921 Ceftriaxone Sodium 1,000 MG DAILY 01/31 0700 AC 01/31 IV 0922 Enoxaparin Sodium 40 MG DAILY 01/31 0900 AC 01/31 SC 0926 Gabapentin 400 MG BID 01/30 2100 AC 01/31 PO 0926 Hydrochlorothiazide 25 MG DAILY 01/31 0900 AC 01/31 PO 0925 Hydrochlorothiazide 25 MG ONCE ONE 01/31 0015 DC 01/31 PO 01/31 0016 0032 Hydrochlorothiazide 25 MG DAILY 01/30 1922 DC PO Insulin Aspart 0 TIDAC 01/31 0800 AC SC Insulin Detemir 10 UNITS BID 01/30 2100 CAN SC Losartan Potassium 100 MG DAILY 01/31 0900 AC 01/31 PO 0926 Losartan Potassium 100 MG DAILY 01/30 1922 DC PO Nebivolol 10 MG DAILY 01/30 190 AC 01/31 PO 0925 Non-Formulary 0 SEE ADMIN CRITERIA 01/30 1900 DC Medication ANY Primidone 100 MG BID 01/30 2100 AC 01/31 PO 0925 Sodium Chloride 1,000 ML Q13H 01/31 021 DC 01/31 IV 01/31 1514 0250 Last 24 Hrs of Lab/Jon Results Last 24 Hrs of Labs/Mics: Laboratory Tests 01/31/18 0737: Anion Gap 8, Estimated GFR > 60, BUN/Creatinine Ratio 18.2, Hemoglobin A1c 6.4 H, C-Reactive Prot, Quant 0.6, Vitamin B12 573 01/31/18 0500: CBC w Diff NO MAN DIFF REQ, RBC 3.77 L, MCV 82.6, MCH 27.3, MCHC 33.1, RDW 16.0 H, MPV 9.7, Gran % 65.3, Lymphocytes % 23.0, Monocytes % 10.1 H, Eosinophils % 1.2, Basophils % 0.4, Absolute Granulocytes 6.8 H, Absolute Lymphocytes 2.4, Absolute Monocytes 1.1 H, Absolute Eosinophils 0.1, Absolute Basophils 0 01/31/18 0246: Lactic Acid 1.4 Microbiology 01/31 0500 NASOPHARYN: Influenza Virus A & B Rapid Smear - COMP 01/31 0320 BLOOD: Blood Culture - RECD 01/31 0243 BLOOD: Blood Culture - RECD 01/31 0202 LOWER RESP: Respiratory Culture - COLB 01/31 020 LOWER RESP: Gram Stain - COLB Assessment/Plan Assessment: The patient is a 82-year-old gentleman with past medical history of hypertension , tremors, diabetes, hyperlipidemia and prostate cancer status post chemotherapy 10 years ago, with recent relapse along with spine metastasis for which patient is following up with his oncologist in [place] getting chemotherapy every 6 months?. The patient presented to [facility] on 01/30 with complain of generalized weakness. Vitals on admission blood pressure running towards the higher side range 180s to 160s/70s to 90s Admission labs significant for leukocytosis 12.9 H/H , bicarbonate 32 BUN 25 Imaging Findings Dictated above The patient is being treated and evaluated for following conditions #Generalized weakness and deconditioning Patient was initially decided to be discharged home. However later it was deemed to be an unsafe discharge plan -Admit to [facility] -Monitoring vitals -PT evaluation today - patient is an assist of 2. Will require STR. #Hand Tremors Patient seen by neurology. Suspect Parkinson's. Patient had shuffling gait when walking with PT. However patient cannot be definitively diagnosed in the setting of current infection. t Bilateral action tremor without any focal deficit - neurology consulted. Patient will have to follow up outpatient with neurology for further evaluation. -Continue gabapentin and primidone #Leukocytosis and Fever likely in setting of pneumonia Patient continues to remain febrile. CT showed minimal tree-in-bud opacities at the periphery of the right upper lobe which is suspicious for possible pneumonia. Patient's WBC decreased. No signs of acute respiratory distress. Blood and urine cultures remain negative to date. No other sources of infection identified at this point. -Continue to monitor -Monitor off antibiotics -Follow up Blood cultures 2 -Follow up Urine culture -Continue IV Ceftriaxone and Azithromycin - If patient worsens, consider broadening coverage to Vanc and Ceftaz #Anemia presented with H/H of stable -Continue iron supplementation -Iron studies, B12 and folate #History of prostate cancer -Obtain results from patient's oncologist #History of diabetes -Oral antiglycemic agents on hold -Insulin sliding scale #History of hypertension, hyperlipidemia continue losartan hydrochlorothiazide, amlodipine, diastolic, statin. #Consistent carbohydrate 1 diet/prophylaxis with Lovenox/FC Problem List: 1. Tremors of nervous system 2. Leukocytosis 3. Fever Pain Ratin Pain Location: n/a Pain Goal: Remain pain free Pain Plan: tylenol PRN Tomorrow's Labs & Rationales: cbc bep Rad PORTILLO,Abdelrahmanravi 01/31/18 1549: Attending MD Review Statement Attending Statement Attending MD Statement: examined this patient, discuss w/resident/PA/POLICE PATROL OFFICER, agreed w/resident/PA/POLICE PATROL OFFICER, discussed with family, reviewed EMR data (avail), discussed with nursing, discussed with case mgmt, amended to note Attending Assessment/Plan: Patient seen and examined. present at the bedside. She reports beginning to the hospital for evaluation due to sudden onset of weakness. She also noted incidentally at the time that he his tremors were more pronounced. In the hospital he was found to have leukocytosis on presentation and has been febrile with T-max of 102.7 in the early hours of this morning. He denies cough or shortness of breath. Denies chest pain. Denies nausea vomiting. Denies abdominal pain. Denies diarrhea. Denies dysuria. On examination he is lethargic but oriented 3. He has no focal deficits on examination. Leukocytosis is improved today. Blood and urine cultures are currently pending. Chest CT showing minimal tree-in-bud opacities in the periphery of the right upper lobe raising concern for infection. Neurology consultation appreciated. Plan: -Continue empiric therapy for pneumonia with ceftriaxone/azithromycin. -Follow blood and urine cultures. -Patient will need further workup for possible Parkinson's disease as an outpatient. -Physical therapy as tolerated.
--- NOTE | 2018-01-31 11:48 | Cons- Neurology ---
General Information and HPI Consulting Request Date of Consult: 01/31/18 Requested By: Rad PORTILLO,Yvon Reason for Consult: Tremor Source of Information: patient, family, old records Exam Limitations: clinical condition History of Present Illness: This is an 82 year old right handed AAM who presented to the hospital due to general fatigue. He was found to have a fever and was started on Azithro and Ceftriaxone. However, even before that his spouse had noted severe worsening of his tremor R>L. Per the spouse this occured spontaneously at rest. He his known for a dignosis of "Essential Tremor" and has been treated by Dr. Evans for that with Primidone 150mg bid and gabapentin. Currently, he his somewhat disoriented and somnolent so I could not get much more information out of him. His son notes that his gait has become more stooped over the last year. No falls. Allergies/Medications Allergies: Coded Allergies: NO KNOWN ALLERGIES (06/08/11) Home Med List: Amlodipine/Valsartan/Hcthiazid (Exforge Hct 10-320-25 MG Tab) 10 MG-320 MG-25 MG TABLET 1 TAB PO DAILY BP (Reported) Aspirin (Ecotrin*) 81 MG TABLET.DR 1 TAB PO DAILY HEART/BLOOD (Reported) Beclomethasone Dipropionate (QVAR) 80 MCG AER.W.ADAP 2 PUF INH BID RESP. ( Reported) Gabapentin 400 MG CAPSULE 1 CAP PO BID SEIZURES/TREMORS (Reported) Multivit-Min/FA/Lycopen/Lutein (Centrum Silver Men Tablet) 300 MCG-600 MCG-300 MCG TABLET 1 TAB PO DAILY SUPPLEMENT (Reported) Nabumetone 750 MG TABLET 1 TAB PO BID PAIN/INFLAMMATION (Reported) Nebivolol HCl (Bystolic) 10 MG TABLET 1 TAB PO DAILY HEART/BP (Reported) Pioglitazone HCl/Metformin HCl (Actoplus Met XR 15-1,000 MG Tb) 15 MG-1,000 MG TBMP.24HR 1 TAB PO BID DM (Reported) Primidone 50 MG TABLET 2 TAB PO BID SEIZURES/TREMORS (Reported) Rosuvastatin Calcium (Crestor) 10 MG TABLET 1 TAB PO DAILY CHOLESTEROL ( Reported) Current Medications: Current Medications Sig/Nahomi Start time Last Medication Dose Route Stop Time Status Admin Acetaminophen 650 MG ONCE ONE 01/31 200 DC 01/31 PO 04/16 0201 0212 Amlodipine Besylate 10 MG DAILY 01/30 192 AC 01/31 PO 0925 Aspirin Buffered 81 MG DAILY 01/31 0900 AC 01/31 PO 0926 Atorvastatin Calcium 40 MG 1700 01/31 1700 CAN PO Azithromycin 500 MG DAILY 01/31 0700 AC 01/31 Dextrose/Water 250 ML IV 0921 Ceftriaxone Sodium 1,000 MG DAILY 01/31 0700 AC 01/31 IV 0922 Enoxaparin Sodium 40 MG DAILY 01/31 0900 AC 01/31 SC 0926 Gabapentin 400 MG BID 01/30 2100 AC 01/31 PO 0926 Hydrochlorothiazide 25 MG DAILY 01/31 0900 AC 01/31 PO 0925 Hydrochlorothiazide 25 MG ONCE ONE 01/31 0015 DC 01/31 PO 01/31 0016 0032 Hydrochlorothiazide 25 MG DAILY 01/30 1922 DC PO Insulin Aspart 0 TIDAC 01/31 08 AC SC Insulin Detemir 10 UNITS BID 01/30 2100 CAN SC Losartan Potassium 100 MG DAILY 01/31 09 AC 01/31 PO 0926 Losartan Potassium 100 MG DAILY 01/30 1922 DC PO Nebivolol 10 MG DAILY 01/30 1901 AC 01/31 PO 0925 Non-Formulary 0 SEE ADMIN CRITERIA 01/30 190 DC Medication ANY Primidone 100 MG BID 01/30 2100 AC 01/31 PO 0925 Sodium Chloride 1,000 ML Q13H 01/31 0215 AC 01/31 IV 01/31 1514 0250 Review of Systems Review of Systems: As per HPI. Past History Travel History Traveled to [place] past 21 day No Medical History Blood Transfusion Hx: No Neurological: migraine EENT: NONE Cardiovascular: hypertension, Essential Tremor Respiratory: asthma, obstructive sleep apnea Gastrointestinal: NONE Hepatic: NONE Renal: NONE Musculoskeletal: NONE Psychiatric: NONE Endocrine: diabetes Blood Disorders: anemia Cancer(s): prostate cancer Surgical History Surgical History: non-contributory Family History Relations & Conditions If Any: Relation not specified for: *No pertinent family history Psychosocial History Where Do You Live? Home Who Do You Live With? self Services at Home: None Smoking Status: Never Smoked Exam & Diagnostic Data Vital Signs and I&O Vital Signs Date Time Temp Pulse Resp B/P B/P Pulse O2 O2 Flow FiO2 Mean Ox Delivery Rate 01/31 926 101.7 68 20 156/67 04/16 0925 101.7 68 20 156/67 01/31 0925 101.7 68 156/67 01/31 0655 68 20 156/67 93 01/31 0540 76 95 01/31 0520 101.7 01/31 0500 101.0 01/31 0414 101.4 01/31 0322 101.8 01/31 0311 101.8 01/31 0212 102.7 01/31 0200 146/74 01/31 0155 102.7 01/31 0035 70 94 01/31 0004 71 176/83 92 01/31 0000 CPAP 01/30 2158 76 94 01/30 2125 Room Air Room Air 01/30 2109 93 185/99 01/30 2108 93 185/99 01/30 202 CPAP 01/30 1923 99.6 93 18 185/99 96 Room Air 01/30 1824 98.5 68 20 172/78 94 Room Air 01/30 1723 95 Room Air 01/30 1520 98.3 65 18 161/72 93 Room Air 01/30 1301 98.0 66 18 188/76 100 Nasal Cannula Intake & Output 01/31 1600 01/31 0800 01/31 0000 Intake Total 615 480 Output Total 350 Balance 265 480 Intake, IV 375 Intake, Oral 240 480 Output, Urine 350 Patient 316 lb Weight Weight Reported by Patient Measurement Method Physical Exam: Somnolent, but answers questions. Partially oriented to time. No rest tremor noted. Some tremor on holding hands out. Some rigidity in right arm. Otherwise EOMI, TATA, faced symmetric, tongue midline, V1-V3 normal sensation. Strength grossly intact 5/5 proximal and distal. Could not do FNF. Reflexes hypoattenuated. Gait deferred due to somnolence. Last 48 Hours of Lab Results: Laboratory Tests 01/31 01/31 01/31 0737 0500 0246 Chemistry Sodium (137 - 145 mmol/L) 136 L Potassium (3.5 - 5.1 mmol/L) 3.5 Chloride (98 - 107 mmol/L) 96 L Carbon Dioxide (22 - 30 mmol/L) 32 H Anion Gap (5 - 16) 8 BUN (9 - 20 mg/dL) 20 Creatinine (0.7 - 1.2 mg/dL) 1.1 Estimated GFR (>60 ml/min) > 60 BUN/Creatinine Ratio (7 - 25 %) 18.2 Hemoglobin A1c (4.2 - 5.8 %) 6.4 H Lactic Acid (0.7 - 2.1 mmol/L) 1.4 C-Reactive Prot, Quant (<1.0 mg/dL) 0.6 Vitamin B12 (239 - 931 pg/mL) 573 Hematology CBC w Diff NO MAN DIFF REQ WBC (4.8 - 10.8 /CUMM) 10.4 RBC (4.70 - 6.10 /CUMM) 3.77 L Hgb (14.0 - 18.0 G/DL) 10.3 L Hct (42 - 52 %) 31.1 L MCV (80.0 - 94.0 FL) 82.6 MCH (27.0 - 31.0 PG) 27.3 MCHC (33.0 - 37.0 G/DL) 33.1 RDW (11.5 - 14.5 %) 16.0 H Plt Count (130 - 400 /CUMM) 140 MPV (7.4 - 10.4 FL) 9.7 Gran % (42.2 - 75.2 %) 65.3 Lymphocytes % (20.5 - 51.1 %) 23.0 Monocytes % (1.7 - 9.3 %) 10.1 H Eosinophils % (0 - 5 %) 1.2 Basophils % (0.0 - 2.0 %) 0.4 Absolute Granulocytes (1.4 - 6.5 /CUMM) 6.8 H Absolute Lymphocytes (1.2 - 3.4 /CUMM) 2.4 Absolute Monocytes (0.10 - 0.60 /CUMM) 1.1 H Absolute Eosinophils (0.0 - 0.7 /CUMM) 0.1 Absolute Basophils (0.0 - 0.2 /CUMM) 0 01/30 01/30 1400 1107 Chemistry TSH &T3 &Free T4 Intrp Cancelled Urines Urine Color (YEL,AMB,STR) YEL Urine Clarity (CLEAR) CLEAR Urine pH (5.0 - 8.0) 6.0 Ur Specific [place] (1.001 - 1.035) >= 1.030 Urine Protein (NEG,<30 MG/DL) 30 H Urine Ketones (NEG) NEG Urine Nitrite (NEG) NEG Urine Bilirubin (NEG) NEG Urine Urobilinogen (0.1 - 1.0 EU/dl) 0.2 Ur Leukocyte Esterase (NEG) NEG Ur Microscopic SEDIMENT EXAMINED Urine RBC (0 - 5 /HPF) 25-50 H Urine WBC (0 - 2 /HPF) 1-3 H Urine Mucus (FEW,NONE) MOD H Urine Hemoglobin (NEG) MOD H Urine Glucose (N MG/DL) NEG 01/30 1106 Chemistry Sodium (137 - 145 mmol/L) 141 Potassium (3.5 - 5.1 mmol/L) 4.0 Chloride (98 - 107 mmol/L) 95 L Carbon Dioxide (22 - 30 mmol/L) 32 H Anion Gap (5 - 16) 13 BUN (9 - 20 mg/dL) 25 H Creatinine (0.7 - 1.2 mg/dL) 1.1 Estimated GFR (>60 ml/min) > 60 BUN/Creatinine Ratio (7 - 25 %) 22.7 Glucose (65 - 99 mg/dL) 105 H Calcium (8.4 - 10.2 mg/dL) 9.1 Total Bilirubin (0.2 - 1.3 mg/dL) 0.4 AST (17 - 59 U/L) 29 ALT (21 - 72 U/L) 31 Alkaline Phosphatase (< 127 U/L) 75 Creatine Kinase (55 - 170 U/L) 426 H Total Protein (6.3 - 8.2 g/dL) 7.1 Albumin (3.5 - 5.0 g/dL) 3.8 Globulin (1.9 - 4.2 gm/dL) 3.3 Albumin/Globulin Ratio (1.1 - 2.2 %) 1.2 TSH &T3 &Free T4 Intrp (0.27 - 4.20 uIU/mL) 1.250 Coagulation PT (9.4 - 12.5 SEC) 12.1 INR (0.90 - 1.17) 1.11 APTT (25 - 37 SEC) 29 Hematology CBC w Diff NO MAN DIFF REQ WBC (4.8 - 10.8 /CUMM) 12.9 H RBC (4.70 - 6.10 /CUMM) 3.99 L Hgb (14.0 - 18.0 G/DL) 10.8 L Hct (42 - 52 %) 33.4 L MCV (80.0 - 94.0 FL) 83.6 MCH (27.0 - 31.0 PG) 27.0 MCHC (33.0 - 37.0 G/DL) 32.3 L RDW (11.5 - 14.5 %) 16.2 H Plt Count (130 - 400 /CUMM) 184 MPV (7.4 - 10.4 FL) 10.6 H Gran % (42.2 - 75.2 %) 83.2 H Lymphocytes % (20.5 - 51.1 %) 9.9 L Monocytes % (1.7 - 9.3 %) 6.5 Eosinophils % (0 - 5 %) 0.2 Basophils % (0.0 - 2.0 %) 0.2 Absolute Granulocytes (1.4 - 6.5 /CUMM) 10.7 H Absolute Lymphocytes (1.2 - 3.4 /CUMM) 1.3 Absolute Monocytes (0.10 - 0.60 /CUMM) 0.8 H Absolute Eosinophils (0.0 - 0.7 /CUMM) 0 Absolute Basophils (0.0 - 0.2 /CUMM) 0 Imaging/Other Studies: Chest CT>>> IMPRESSION: Minimal tree-in-bud opacities at the periphery of the right upper lobe may be infectious or inflammatory in etiology. No empyema. No acute findings in the abdomen or pelvis. Right nonobstructing renal calculus. Bilateral renal cysts. NCHCT>>> FINDINGS: There is no intracranial hemorrhage, hematoma, or extra-axial fluid collection. The ventricles are normal in size. There is no hydrocephalus, edema, or mass effect. The mues-white matter differentiation appears symmetric. There is no visible acute territorial infarct or mass lesion. The calvarium appears intact. There is no pneumocephalus or orbital emphysema. The visualized sinuses and middle ears and mastoid air cells are clear. There is under pneumatization of the mastoids. IMPRESSION: No acute intracranial abnormality. Assessment/Plan Assessment: 82 year old man with KNOWN tremor being treated at baseline for ET. Now seems to have an underlying infection. ANY tremor would get worse during infections. Further, some antibiotics may also be stimulatory and increase tremor. The real question is whether or not the tremor is truly benign or whether this is Parkinson's disease.This is not something that could be determined at the moment when he is ill. Recommendations: When the patient gets back to baseline health, should visit us to reassess for possible PD. For now continue with Primidone and antibiotics. No need for EEG. Consult Acknowledgment - Thank you for your consult request.
[2018-01-31 13:54] VITALS: BP 148/72
[2018-01-31 21:42] VITALS: BP 138/70
[2018-02-01 06:51] VITALS: BP 122/68
[2018-02-01 09:07] LABS: ABSOLUTE BASOPHIL COUNT 0.1 /CUMM (0.0-0.2); ABSOLUTE EOSINOPHIL COUNT 0.3 /CUMM (0.0-0.7); ABSOLUTE GRANULOCYTE CT 5.3 /CUMM (1.4-6.5); ABSOLUTE LYMPH COUNT 2.4 /CUMM (1.2-3.4); BASOPHIL % 0.6 % (0.0-2.0); EOSINOPHIL % 3.2 % (0-5); GRANULOCYTE % 59.1 % (42.2-75.2); HEMATOCRIT 33.3 % (42-52); MEAN CORPUSCULAR HGB 27.6 PG (27.0-31.0); MEAN CORPUSCULAR HGB CONC 33.2 G/DL (33.0-37.0); MEAN CORPUSCULAR VOLUME 83.2 FL (80.0-94.0); MEAN PLATELET VOLUME 10.3 FL (7.4-10.4); PLATELET COUNT 143 /CUMM (130-400); RBC DISTRIBUTION WIDTH 16.2 % (11.5-14.5); RED BLOOD CELL CT 4.01 /CUMM (4.70-6.10); WHITE BLOOD CELL COUNT 9.1 /CUMM (4.8-10.8)
--- NOTE | 2018-02-01 09:49 | PN- Housestaff ---
Bear PORTILLO,Kristen 02/01/18 0949: Subjective Follow-up For: Generalized weakness and deconditioning Hand Tremors Subjective: Seen and examined sitting in the bed having breakfast. Better at bedside. Reports continued worsening of his hand tremors. Patient has been evaluated by neurology and will require outpatient follow-up and workup. He has been evaluated by a physical therapy recommended short-term rehabilitation. He was assist of 2 and will be unsafe discharge plan to home. Review of Systems Constitutional: Reports: see HPI. Objective Last 24 Hrs of Vital Signs/I&O Vital Signs Date Time Temp Pulse Resp B/P B/P Pulse O2 O2 Flow FiO2 Mean Ox Delivery Rate 02/01 0942 18 93 Room Air 02/01 0916 122/68 02/01 0915 122/68 02/01 0914 122/68 02/01 0651 98.8 68 20 122/68 93 CPAP 02/01 0048 66 96 02/01 0000 CPAP 01/31 2218 68 95 01/31 2142 99.5 63 20 138/70 93 Room Air 01/31 1658 Room Air Room Air 01/31 1647 Room Air Room Air 01/31 1354 100.5 65 20 148/72 98 Room Air Intake & Output 02/01 1600 02/01 0800 02/01 0000 Intake Total 240 250 Output Total 350 350 Balance -110 -100 Intake, IV 10 Intake, Oral 240 240 Output, Urine 350 350 Physical Exam General Appearance: Alert, Oriented X3, Cooperative Cardiovascular: systolic murmur Lungs: Clear to Auscultation Abdomen: Soft, No Tenderness Current Medications: Current Medications Sig/Nahomi Start time Last Medication Dose Route Stop Time Status Admin Acetaminophen 650 MG ONCE ONE 02/01 1000 DC 02/01 PO 02/01 1001 1000 Amlodipine Besylate 10 MG DAILY 01/30 1921 AC 02/01 PO 0915 Aspirin Buffered 81 MG DAILY 01/31 900 AC 02/01 PO 0916 Azithromycin 500 MG DAILY 01/31 07 AC 02/01 Dextrose/Water 250 ML IV 09 Ceftriaxone Sodium 1,000 MG DAILY 01/31 07 AC 02/01 IV 0913 Enoxaparin Sodium 40 MG DAILY 01/31 09 AC 02/01 SC 0917 Gabapentin 400 MG BID 01/30 2100 AC 02/01 PO 0916 Hydrochlorothiazide 25 MG DAILY 01/31 900 AC 02/01 PO 0916 Insulin Aspart 0 TIDAC 01/31 0800 AC SC Losartan Potassium 100 MG DAILY 01/31 0900 AC 02/01 PO 0916 Nebivolol 10 MG DAILY 01/30 1901 AC 02/01 PO 0914 Polyethylene Glycol 17 GM DAILY 02/01 0948 AC 02/01 PO 1030 Primidone 100 MG BID 01/30 2100 AC 02/01 PO 0916 Senna 187 MG AT BEDTIME 02/01 2100 AC PO Sodium Chloride 1,000 ML Q13H 01/31 0215 DC 01/31 IV 01/31 1514 0250 Last 24 Hrs of Lab/Jon Results Last 24 Hrs of Labs/Mics: Laboratory Tests 02/01/18 0744: Anion Gap 11, Estimated GFR > 60, BUN/Creatinine Ratio 16.4, CBC w Diff NO MAN DIFF REQ, RBC 4.01 L, MCV 83.2, MCH 27.6, MCHC 33.2, RDW 16.2 H, MPV 10.3, Gran % 59.1, Lymphocytes % 26.2, Monocytes % 10.9 H, Eosinophils % 3.2, Basophils % 0.6, Absolute Granulocytes 5.3, Absolute Lymphocytes 2.4, Absolute Monocytes 1.0 H, Absolute Eosinophils 0.3, Absolute Basophils 0.1 Microbiology 02/01 1349 LOWER RESP: Respiratory Culture - ORD 02/01 1349 LOWER RESP: Gram Stain - ORD Assessment/Plan Assessment: The patient is a 82-year-old gentleman with past medical history of hypertension , tremors, diabetes, hyperlipidemia and prostate cancer status post chemotherapy 10 years ago, with recent relapse along with spine metastasis for which patient is following up with his oncologist in [place] getting chemotherapy every 6 months?. The patient presented to [facility] on 01/30 with complain of generalized weakness. The patient is being treated and evaluated for following conditions #Generalized weakness and deconditioning Patient has been evaluated by physical therapy. He continues to be requiring assistance of 2 people just to move around. -Monitoring vitals -Will require short-term rehabilitation on discharge #Hand Tremors is likely essential: Bilateral action tremor without any focal deficit. It's reported that patient has a shuffling gaits so there is a consideration of parkinsonism however I have not seen patient having a resting tremor. Neurology has evaluated the patient. There is consideration of parkinsonism. However patient cannot be definitively diagnosed in the setting of current infection. -Continue gabapentin and primidone -Patient will have to follow up outpatient with neurology for further evaluation. #Fever source unidentified. Patient continues to remain febrile overnight. CT showed minimal tree-in-bud opacities at the periphery of the right upper lobe. No signs of acute respiratory distress or respiratory symptoms. He was recently treated for bronchitis as an outpatient. Blood cultures remain negative. Urine cultures positive for gram-negative rods. No urinary symptoms -We are going to continue patient on ceftriaxone for presumed pneumonia -Continue to monitor fever and WBC curve -If patient worsens, consider broadening coverage to Vanc and Ceftaz #Anemia presented with H/H of stable -Continue iron supplementation #History of prostate cancer -Obtain results from patient's oncologist #History of diabetes -Oral antiglycemic agents on hold -Insulin sliding scale #History of hypertension, hyperlipidemia continue losartan hydrochlorothiazide, amlodipine, diastolic, statin. #Consistent carbohydrate 1 diet/prophylaxis with Lovenox/FC Problem List: 1. Tremors of nervous system Pain Ratin Pain Location: back Pain Goal: Pain 4 or less Pain Plan: prn Tomorrow's Labs & Rationales: Yvon Ascencio MD 02/01/18 1328: Attending MD Review Statement Attending Statement Attending MD Statement: examined this patient, discuss w/resident/PA/ENGINEERING SUPERVISOR, agreed w/resident/PA/ENGINEERING SUPERVISOR, discussed with family, reviewed EMR data (avail), discussed with nursing, discussed with case mgmt, amended to note Attending Assessment/Plan: Patient seen and examined. present at the bedside. No issues overnight reported by nursing staff. reports the patient is looking much better today compared to presentation. He is alert. He is oriented 3. He is still weak requiring assistance with mobilization. The physical therapy service is recommending short-term rehabilitation once he is medically stable. So far today he has been afebrile. On examination heart sounds are regular with no audible murmur. Lungs are clear to auscultation bilaterally. No peripheral edema. Blood cultures are currently negative. He is growing gram-negative rods in the urine however only 30,000 colony-forming units. Problems: 1. Fever; probably secondary to urinary tract infection. 2. Recently treated bronchitis. 3. Deconditioning 4. Chronic tremors Plan: -Patient presented with weakness and was found to be febrile. Chest x-ray did raise concern for pneumonia due to tree-in-bud opacities in the periphery of the right upper lobe. However patient did not have any pulmonary symptoms. He was recently treated for bronchitis as an outpatient. -Continue antibiotic treatment with Rocephin for now. May discontinue azithromycin. Follow-up urine cultures identification and sensitivity. -Recommend swallow evaluation to rule out aspiration. -Continue physical therapy while in the hospital. -Outpatient urology follow-up for evaluation for possible Parkinson's disease.
[2018-02-01 14:06] VITALS: BP 120/60
[2018-02-01 21:45] VITALS: BP 140/70
[2018-02-02 05:58] VITALS: BP 120/66
--- NOTE | 2018-02-02 07:37 | Patient Discharge Instructions ---
Discharge Instructions General Discharge Information You were seen/treated for: Generalized deconditioning Worsening of tremors Special Instructions: Please follow-up with your primary care doctor after 1 week of discharge Please follow-up with your oncologist after discharge Please follow-up with neurology after discharge referral has been provided. Diet Continue normal diet: Yes Activity Activity Self Limited: Yes Acute Coronary Syndrome Inclusion Criteria At DC or during hospital stay patient has or had the following: ACS DIAGNOSIS No Discharge Core Measures Meds if any: Prescribed or Continued at Discharge Meds if any: NOT Prescribed or Continued at Discharge Congestive Heart Failure Inclusion Criteria At DC or during hospital stay patient has or had the following: CHF DIAGNOSIS No Discharge Core Measures Meds if any: Prescribed or Continued at Discharge Meds if any: NOT Prescribed or Continued at Discharge Cerebrovascular accident Inclusion Criteria At DC or during hospital stay patient has or had the following: CVA/TIA Diagnosis No Discharge Core Measures Meds if any: Prescribed or Continued at Discharge Meds if any: NOT Prescribed or Continued at Discharge Venous thromboembolism Inclusion Criteria VTE Diagnosis No VTE Type NONE VTE Confirmed by (Test) NONE Discharge Core Measures - Per Current guidelines, there needs to be overlap - treatment for the first 5 days of Warfarin therapy. - If discharged on Warfarin prior to 5 days of - overlap therapy, the patient will need to be - assessed for post discharge needs including - *Post discharge parental anticoagulation - *Warfarin and/or parental anticoagulation education - *Follow up date to check INR post discharge At least 5 days overlap therapy as Inpatient No Meds if any: Prescribed or Continued at Discharge Note: Overlap Therapy is Warfarin and Anticoagulant Meds if any: NOT Prescribed or Continued at Discharge
[2018-02-02] MEDS ORDERED: AMOX-CLAV 875-1 EACH PO ×2 (09:35→15:33)
--- NOTE | 2018-02-02 09:53 | PN- Housestaff ---
See Addendum Subjective Follow-up For: Generalized weakness and deconditioning Hand Tremors Subjective: Patient seen and examined. Sitting in the chair complaining of neck pain. States is more like a muscular pain. Has been evaluated by physical therapy and they are recommending short-term rehabilitation. Afebrile over last 24 hours. Patient spiked fever on January 31 and has been afebrile ever since. White count within normal limits. Urine culture positive for Klebsiella. Review of Systems Constitutional: Reports: see HPI. Objective Last 24 Hrs of Vital Signs/I&O Vital Signs Date Time Temp Pulse Resp B/P B/P Pulse O2 O2 Flow FiO2 Mean Ox Delivery Rate 02/02 08 73 120/66 02/02 0828 73 120/66 02/02 0827 73 120/66 02/02 0558 98.6 73 18 120/66 95 Room Air 02/02 0021 68 98 02/02 0000 CPAP Room Air 02/01 2208 78 98 02/01 2145 98.2 64 20 140/70 97 Room Air 02/01 1406 98.0 62 16 120/60 95 Room Air Intake & Output 02/02 1600 02/02 0800 02/02 0000 Intake Total 600 Output Total 350 Balance 250 Intake, Oral 600 Number 1 Bowel Movements Output, Urine 350 Physical Exam General Appearance: Alert, Oriented X3 Cardiovascular: Normal S1, Normal S2 Lungs: Clear to Auscultation Abdomen: Normal Bowel Sounds, Soft Neurological: Normal Speech Current Medications: Current Medications Sig/Nahomi Start time Last Medication Dose Route Stop Time Status Admin Acetaminophen 650 MG Q4P PRN 02/01 2200 AC 02/01 PO 220 Amlodipine Besylate 10 MG DAILY 01/30 192 AC 02/02 PO 0827 Amoxicillin/ 875 MG Q12 02/02 2100 AC Clavulanate Potassium PO Amoxicillin/ 875 MG Q12 02/02 927 DC Clavulanate Potassium PO Aspirin Buffered 81 MG DAILY 01/31 900 AC 02/02 PO 08 Azithromycin 500 MG DAILY 01/31 700 DC 02/01 Dextrose/Water 250 ML IV 912 Ceftriaxone Sodium 1,000 MG DAILY 01/31 700 DC 02/02 IV 0828 Enoxaparin Sodium 40 MG DAILY 01/31 900 AC 02/02 SC 0828 Gabapentin 400 MG BID 01/30 2100 AC 02/02 PO 0828 Hydrochlorothiazide 25 MG DAILY 01/31 900 AC 02/02 PO 0828 Insulin Aspart 0 TIDAC 01/31 0800 AC SC Losartan Potassium 100 MG DAILY 01/31 0900 AC 02/02 PO 0828 Nebivolol 10 MG DAILY 01/30 1901 AC 02/02 PO 0828 Patient Medication 1 ED ONE ONE 02/01 1645 IA Teaching ED 02/01 1646 Polyethylene Glycol 17 GM DAILY 02/01 0948 AC 02/02 PO 0829 Primidone 100 MG BID 01/30 2100 AC 02/02 PO 0831 Senna 187 MG AT BEDTIME 02/01 2100 AC 02/01 PO 2124 Last 24 Hrs of Lab/Jon Results Last 24 Hrs of Labs/Mics: Microbiology 02/01 1349 LOWER RESP: Respiratory Culture - COLB 02/01 1349 LOWER RESP: Gram Stain - COLB Assessment/Plan Assessment: The patient is a 82-year-old gentleman with past medical history of hypertension , tremors, diabetes, hyperlipidemia and prostate cancer status post chemotherapy 10 years ago, with recent relapse along with spine metastasis for which patient is following up with his oncologist in [place] getting chemotherapy every 6 months?. The patient presented to [facility] on 01/30 with complain of generalized weakness. The patient is being treated and evaluated for following conditions #Generalized weakness and deconditioning Patient has been evaluated by physical therapy. He continues to be requiring assistance of 2 people just to move around. -Monitoring vitals -Will require short-term rehabilitation on discharge #Hand Tremors is likely essential: Bilateral action tremor without any focal deficit. It's reported that patient has a shuffling gaits so there is a consideration of parkinsonism however I have not seen patient having a resting tremor. Neurology has evaluated the patient. However patient cannot be definitively evaluated in the setting of current infection. Hand tremors can become worsened during an ongoing infection. -Continue gabapentin and primidone -Patient will have to follow up outpatient with neurology for further evaluation. #Fever source unidentified. -Patient continues to remain afebrile overnight. -Blood cultures remain negative -CT showed minimal tree-in-bud opacities at the periphery of the right upper lobe. No signs of acute respiratory distress or respiratory symptoms. He was recently treated for bronchitis as an outpatient. -Urine cultures positive for gram-negative rods. No urinary symptoms. UA shows only 1-5 WBCs, it is unlikely that patient has UTI -Patient received ceftriaxone and azithromycin seen 2 yesterday for suspected pneumonia -He has been transitioned to oral Augmentin today -ID consult placed #Anemia presented with H/H of stable -Continue iron supplementation #History of prostate cancer -Records requested from oncologist ,awaiting records #History of diabetes -Oral antiglycemic agents on hold -Insulin sliding scale #Obstructive sleep apnea -Continue CPAP at night #History of hypertension, hyperlipidemia continue losartan hydrochlorothiazide, amlodipine, diastolic, statin. #Consistent carbohydrate 1 diet/prophylaxis with Lovenox/FC Problem List: 1. Tremors of nervous system Pain Ratin Pain Location: neck Pain Goal: Pain 4 or less Pain Plan: lidociane patch, Tomorrow's Labs & Rationales: none
--- NOTE | 2018-02-02 13:10 | PN- Student ---
Subjective Subjective: Mr. Javier is an 82 yo M admitted to the general medicine floor for generalized weakness and increased hand tremors. On admission he was febrile, UA was positive for gram neg rods but he was asymptomatic and CXR showed minimal tree and bud opacties. He is being treated for fever of unknown etiology with ceftriaxone. He is feeling more comfortable and had no complaints overnight. He remains weak and feels that his tremors have not improved. Objective Objective: He is currently afebrile with morning temp of 98.6, He was AOx3, lungs were clear to auscultation throughout, normal S1 and S2 no murmurs. His strength was 4/5 bilaterally in his forearms and 3/5 bilaterally on hand internal specialist, his R leg was 3/5 and L leg was 4/5. Action tremor is present when the pt lifts his arms. Assessment/Plan Assessment: 82 yo M with generalized weakness and increased hand tremor presented with fever of unknown etiology, with CXR that shows minimal tree bud opacities and urine culture positive for colonies but UA neg for WBCs, continues to have weakness in distal muscles and liminted action tremors. Plan: D/C to rehabilitation center, continue on oral amoxicillin cavulanate
[2018-02-02 14:34] VITALS: BP 124/70
--- NOTE | 2018-02-02 15:10 | Cons- Infect Disease ---
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 On admission he was afebrile. Laboratory data revealed a white blood cell count of 13,000, BUN/creatinine 25 and 1.1, with normal liver enzymes , CPK 426, coags normal. Urinalysis 25-50 RBCs/1-3 WBCs. Chest x-ray was negative. CT of the head was negative for any acute process. He was initially followed off antibiotics. Overnight he spiked to 102.7. A CT of the chest, abdomen and pelvis was performed and revealed minimal tree-in-bud opacities at the periphery of the right upper lobe and he was begun on Ceftriaxone And Azithromycin. He defervesced within 12 hours and his white blood cell count has normalized. The Azithromycin was discontinued on February 01. His blood cultures have been negative but a urine culture from admission is positive for approximately 40,000 colonies of Klebsiella. Presently he complains of neck pain, which began after admission. He also notes generalized weakness and chronic low back pain but he denies any respiratory, GI or symptoms. Allergies/Medications Allergies: Coded Allergies: NO KNOWN ALLERGIES (06/08/11) Home Med List: Amlodipine/Valsartan/Hcthiazid (Exforge Hct 10-320-25 MG Tab) 10 MG-320 MG-25 MG TABLET 1 TAB PO DAILY BP (Reported) Amoxicillin/Clavulanate Potass (Amox-Clav 875-125 MG Tablet) 875 MG-125 MG TABLET 1 TAB PO Q12 INFECTION Aspirin (Ecotrin*) 81 MG TABLET.DR 1 TAB PO DAILY HEART/BLOOD (Reported) Beclomethasone Dipropionate (QVAR) 80 MCG AER.W.ADAP 2 PUF INH BID RESP. ( Reported) Gabapentin 400 MG CAPSULE 1 CAP PO BID SEIZURES/TREMORS (Reported) Multivit-Min/FA/Lycopen/Lutein (Centrum Silver Men Tablet) 300 MCG-600 MCG-300 MCG TABLET 1 TAB PO DAILY SUPPLEMENT (Reported) Nabumetone 750 MG TABLET 1 TAB PO BID PAIN/INFLAMMATION (Reported) Nebivolol HCl (Bystolic) 10 MG TABLET 1 TAB PO DAILY HEART/BP (Reported) Pioglitazone HCl/Metformin HCl (Actoplus Met XR 15-1,000 MG Tb) 15 MG-1,000 MG TBMP.24HR 1 TAB PO BID DM (Reported) Primidone 50 MG TABLET 2 TAB PO BID SEIZURES/TREMORS (Reported) Rosuvastatin Calcium (Crestor) 10 MG TABLET 1 TAB PO DAILY CHOLESTEROL ( Reported) Past History Travel History Traveled to [place] past 21 day No Medical History Blood Transfusion Hx: No Neurological: migraine, essential tremor EENT: NONE Cardiovascular: hypertension Respiratory: asthma, obstructive sleep apnea Gastrointestinal: NONE Hepatic: NONE Renal: NONE Musculoskeletal: NONE Psychiatric: NONE Endocrine: diabetes Blood Disorders: anemia Cancer(s): prostate cancer History of MRSA: No History of VRE: No History of CDIFF: No Isolation History: Standard Pneumonia Vaccine: 11/19/09 Influenza Vaccine: 07/29/17 Surgical History Surgical History: non-contributory Family History Relations & Conditions If Any: Relation not specified for: *No pertinent family history Psychosocial History Where Do You Live? Home Who Do You Live With? self Services at Home: None Smoking Status: Never Smoked Review of Systems Review of Systems Constitutional: Denies: chills, fever. Cardiovascular: Denies: chest pain. Respiratory: Denies: cough, short of breath. GI: Reports: no symptoms. Genitourinary: Reports: no symptoms. All Other Systems: Reviewed and Negative Exam & Diagnostic Data Last 24 Hrs of Vital Signs/I&O Vital Signs Date Time Temp Pulse Resp B/P B/P Pulse O2 O2 Flow FiO2 Mean Ox Delivery Rate 02/02 1434 98.9 59 16 124/70 93 Room Air 02/02 0828 73 120/66 02/02 0828 73 120/66 02/02 0827 73 120/66 02/02 0558 98.6 73 18 120/66 95 Room Air 02/02 0021 68 98 02/02 0000 CPAP Room Air 02/01 2208 78 98 02/01 2145 98.2 64 20 140/70 97 Room Air Intake & Output 02/02 1600 02/02 0800 02/02 0000 Intake Total 450 600 Output Total 350 350 Balance 100 250 Intake, Oral 450 600 Number 1 Bowel Movements Output, Urine 350 350 Physical Exam Other Physical Findings: Afebrile. He is awake and alert in no acute distress. Skin reveals no rash. HEENT negative. Neck is supple with no adenopathy. Lungs are clear. Heart regular rhythm with no murmur. Abdomen is obese, soft, nontender with positive bowel sounds. Back no CVA tenderness. Extremities 1+ edema both lower extremities. Neuro is without focality. Last 24 Hours of Lab Results: Laboratory Tests 02/01 0744 Chemistry Sodium (137 - 145 mmol/L) 137 Potassium (3.5 - 5.1 mmol/L) 3.5 Chloride (98 - 107 mmol/L) 93 L Carbon Dioxide (22 - 30 mmol/L) 33 H Anion Gap (5 - 16) 11 BUN (9 - 20 mg/dL) 18 Creatinine (0.7 - 1.2 mg/dL) 1.1 Estimated GFR (>60 ml/min) > 60 BUN/Creatinine Ratio (7 - 25 %) 16.4 Hematology CBC w Diff NO MAN DIFF REQ WBC (4.8 - 10.8 /CUMM) 9.1 RBC (4.70 - 6.10 /CUMM) 4.01 L Hgb (14.0 - 18.0 G/DL) 11.1 L Hct (42 - 52 %) 33.3 L MCV (80.0 - 94.0 FL) 83.2 MCH (27.0 - 31.0 PG) 27.6 MCHC (33.0 - 37.0 G/DL) 33.2 RDW (11.5 - 14.5 %) 16.2 H Plt Count (130 - 400 /CUMM) 143 MPV (7.4 - 10.4 FL) 10.3 Gran % (42.2 - 75.2 %) 59.1 Lymphocytes % (20.5 - 51.1 %) 26.2 Monocytes % (1.7 - 9.3 %) 10.9 H Eosinophils % (0 - 5 %) 3.2 Basophils % (0.0 - 2.0 %) 0.6 Absolute Granulocytes (1.4 - 6.5 /CUMM) 5.3 Absolute Lymphocytes (1.2 - 3.4 /CUMM) 2.4 Absolute Monocytes (0.10 - 0.60 /CUMM) 1.0 H Absolute Eosinophils (0.0 - 0.7 /CUMM) 0.3 Absolute Basophils (0.0 - 0.2 /CUMM) 0.1 Last 24 Hours of Jon Results: Blood cultures 2 January 31 negative Urine culture January 30 approximately 40,000 colonies of Klebsiella resistant to Ampicillin Rapid flu swab January 31 negative Diagnostic Data Recent Imaging Findings: Chest x-ray January [address] of the head January 30 negative for any acute process. CT of the chest, abdomen and pelvis January 31 revealed minimal tree-in-bud opacities at the periphery of the right upper lobe, bilateral renal cysts and a right nonobstructing renal calculus Assessment/Plan Assessment/Plan Impression: This is an 82-year-old man with a history of diabetes, prostate cancer, metastatic to the bone, admitted on January 30 with increased weakness, causing difficulty in getting off of the commode, found initially to be afebrile with a mild leukocytosis, with the development of a fever on the night of admission, with a CT of the chest, abdomen and pelvis only revealing minimal tree-in-bud opacities at the peripheryof the right upper lobe and found to have a positive urine culture for approximately 40,000 colonies of Klebsiella. The significance of the positive urine culture is unclear. He has no urinary symptoms and his urinalysis reveals only 1-3 white blood cells; therefore suspect that this represents a contaminant. The CT scan reveals only minimal tree-in-bud opacities in the right lower lobe and, in the absence of any respiratory symptoms, pneumonia seems unlikely. He has no GI symptoms to suggest an intra-abdominal focus, with no diarrhea to suggest C. difficile ( status post a course of Augmentin prior to admission) and his CT of the abdomen and pelvis is essentially negative. He had no flu-like symptoms to suggest Influenza, and his rapid flu swab was negative. Despite the lack of any obvious focus of infection I am inclined to commit him to at least a short course of antibiotics given his age, high fever, mild leukocytosis on admission and improvement on antibiotics. Suggestion: 1. Would begin Augmentin 875 mg po every 12 hours in the a.m. for 2 days Consult Acknowledgment - Thank you for your consult request.
--- NOTE | 2018-02-02 15:53 | Discharge Summary ---
Visit Information Visit Dates Admission Date: 01/30/18 Discharge Date: 02/02/2018 Hospital Course Course Attending Physician: Yvon Leroy MD Primary Care Physician: Emeli PORTILLO,Tamera Samuels. Hospital Course: 82 year-old very pleasant gentleman with a past medical history of hyperlipidemia, prostate cancer status post chemotherapy with recent relapse complicated by spinal metastases and currently restarted on chemotherapy, peripheral neuropathy, chronic right hand essential tremor managed by primidone and gabapentin presented to [facility] for evaluation of generalized weakness and worsening of his chronic anemia. He was noted by family members to be very weak to point out was not able to ambulate to the bathroom and his hand tremor had significantly worsened. No report of fever, other than the bronchitis 3 weeks prior to presentation there was no URI symptoms, sick contacts or recent travel either. Vitals: Tmax 99.6, HR 66-90's, BP 161/72 -->185/99, sats 94% RA. Exam: awake, alert, oriented x 2 (was able to tell January 30, but said 2015), speech is clear, no facial droop, cranial nerves intact, power 5/5 bilateral upper extremities, no pronator drift, power 4/5 in bilateral lower extremites, sensation reduced in bilateral lower extremities singleton downwards to feet, proprioception attempted but patient unable to follow, reflex 1+, Plantar's downgoing. Tone good, no rigidity. Tremors noted to right hand more prominent than left hand. Tremor worse when trying to do finger-nose testing but is visible at rest also. Patient reports pain in the lower extremities (L>R) around the singleton area, no obvious abnormality. He also reports back pain -on examination point tenderness noted in right buttock but no spinal or paraspinal tenderness. Chest b/l clear, Heart S1S2 regular, systolic murmur+. Abd soft, NT. LE: chronic stasis changes, chronic 1+ edema, peripheral pulse well felt. Labs: WBC 12.9, H/H 10.8/33.4, Plt 184, bicarb 32, BUN 25, creat 1.1, glucose 105. UA proteinuria, RBC 25-50. Head CT: no acute abnormality. CXR: no acute disease. CT CHEST :Minimal tree-in-bud opacities at the periphery of the right upper lobe may be infectious or inflammatory in etiology. No empyema. CT Abdomen/Pelvis : no acute intracranial pathology. EKG (being read as Afib), EKG was repeated sinus rhythm with first degree AV block and LAFB, old anteroseptal OR. No acute changes. Pt was admitted to general medicine floor for evaluation of generalized weakness and increased hand tremors.On the second day of admission, patient developed fevers with a reported Tmax of 101.7. Given the fevers, leukocytosis on admission and CT chest imaging suggesting of infectious vs inflamatory changes, pt was started on ceftriaxone for the coverage of community acquired pneumoniae. Neurologist was consulted for the tremors who evaluated the patient with their assesment his worsening hand tremors was due to infectious etiology, however Parkinsons disease was also considered as a possible diagnosis. On day 3, patient urine grew klebsiella, he ws already on ceftriaxone. ID was consulted adn reccomended patient have a short course of ABX for 2 more days. Physical Therapy evaluated patient and reccomended patient got to Short term rehab. On day 4, pt was medically stable and was discharged to [facility]. Allergies: Coded Allergies: NO KNOWN ALLERGIES (06/08/11) Disposition Summary Disposition Principal Diagnosis: UTI Additional Diagnosis: GENERALIZED WEKANESS, PNA Discharge Disposition: SNF Discharge Instructions General Discharge Information Code Status: Full Code Patient's Diet: REGULAR Patient's Activity: TOLERATED Follow-Up Instructions/Appts: Please have PCP order CT chest scan to assess for resolution of tree bud appearance Please f/u with neurology within 1 week Please f/u with PCP within 1 week. Medications at Discharge Discharge Medications: Continue taking these medications: Aspirin (Ecotrin*) 81 MG TABLET. 1 Tablet ORAL DAILY Comments: Last Taken:02/02 Time: 0830 Multivit-Min/FA/Lycopen/Lutein (Centrum Silver Men Tablet) 300 MCG-600 MCG-300 MCG TABLET 1 Tablet ORAL DAILY Comments: Last Taken: NOT GIVEN Time: Nabumetone (Nabumetone) 750 MG TABLET 1 Tablet ORAL TWICE DAILY Qty = 14 Comments: Last Taken: NOT GIVEN Time: Amlodipine/Valsartan/Hcthiazid (Exforge Hct 10-320-25 MG Tab) 10 MG-320 MG-25 MG TABLET 1 Tablet ORAL DAILY Comments: Last Taken: 02/02 Time: 0830 Nebivolol HCl (Bystolic) 10 MG TABLET 1 Tablet ORAL DAILY Qty = 30 Comments: Last Taken: 02/02 Time: 0830 Rosuvastatin Calcium (Crestor) 10 MG TABLET 1 Tablet ORAL DAILY Qty = 30 Comments: Last Taken: 02/01 Time: 9 PM Pioglitazone HCl/Metformin HCl (Actoplus Met XR 15-1,000 MG Tb) 15 MG-1,000 MG TBMP.24HR 1 Tablet ORAL TWICE DAILY Qty = 180 Comments: Last Taken: NOT GIVEN Time: Primidone (Primidone) 50 MG TABLET 2 Tablet ORAL TWICE DAILY Qty = 360 Comments: Last Taken: 02/02 Time: 0830 Beclomethasone Dipropionate (QVAR) 80 MCG AER.W.ADAP 2 Puff Inhale through mouth TWICE DAILY Qty = 261 Comments: Last Taken: NOT GIVEN Time: Gabapentin (Gabapentin) 400 MG CAPSULE 1 Capsule ORAL TWICE DAILY Days = 90 Comments: Last Taken: 02/02 Time: 0830 Start taking the following new medications: Amoxicillin/Clavulanate Potass (Amox-Clav 875-125 MG Tablet) 875 MG-125 MG TABLET 1 Tablet ORAL EVERY 12 HOURS Qty = 4 No Refills Comments: Last Taken: IV ABX GIVEN 02/01 10PM Time: Copies To: Emeli PORTILLO,Tamera Webb
[2018-02-02 16:24] VITALS: BP 124/70
== END 2018-02-02 18:16 | DRG 690 ==
LOC: ERH 10:37 → ERHI 16:53 → 2NB 16:53 → ENRESERV 17:58 → ENTRNSPT 18:24 → EDTRNSPTSTS 18:30 → 2NB 18:35 → CMPTRNSPT 18:47 → 2NB 19:12
PROVIDERS: Emergency Medicine; Student in an Organized Health Care Education/Training Program
PROC: 5A09357 Assistance with Respiratory Ventilation, Less than 24 Consecutive Hours, Continuous Positive Airway Pressure (ICD-10-PCS; principal; 2018-01-30)
DX: N39.0 Urinary tract infection, site not specified (principal); C79.51 Secondary malignant neoplasm of bone; E11.42 Type 2 diabetes mellitus with diabetic polyneuropathy; B96.1 Klebsiella pneumoniae [K. pneumoniae] as the cause of diseases classified elsewhere; D64.9 Anemia, unspecified; I44.4 Left anterior fascicular block; E78.5 Hyperlipidemia, unspecified; R25.1 Tremor, unspecified; D72.829 Elevated white blood cell count, unspecified; G47.33 Obstructive sleep apnea (adult) (pediatric); I44.0 Atrioventricular block, first degree; G89.29 Other chronic pain; M54.5 Low back pain; I10 Essential (primary) hypertension; Z85.46 Personal history of malignant neoplasm of prostate; Z79.84 Long term (current) use of oral hypoglycemic drugs; Z92.21 Personal history of antineoplastic chemotherapy
CPT/HCPCS: 2NBP; 36415; 36592; 71045; 74176; 81001; 82436; 87040; 87070; 87086; 87804; 87804-59; 93005; 93010; 97116-GO; 97161-GP; 97530-GO; J0456; J0696; J1650; J3490; J7060